=== PATIENT | male | born 1950 | race Caucasian/White ===

== ENCOUNTER 2025-03-23 07:31 | Outpatient (OUT) | payer OTHER, SELFPAY ==
[2025-03-23 08:32] LABS: Hematocrit 38.7 % (42.0-54.0); Hemoglobin 12.6 g/dL (14.0-18.0); Mean Corpuscular HGB Conc 32.6 g/dL (29.9-35.2); Mean Corpuscular Hemoglobin 27.9 pg (25.9-34.0); Mean Corpuscular Volume 85.8 fL (80.0-94.0); Platelet Count 218 10^3/uL (150-450); Red Blood Count 4.51 10^6/uL (4.70-6.10); White Blood Count 8.2 10^3/uL (4.0-11.0)
[2025-03-23 08:50] LABS: Alanine Aminotransferase 26 U/L (16-63); Albumin Globulin Ratio 0.5; Albumin Level 2.5 g/dL (3.4-5.0); Alkaline Phosphatase 655 U/L (46-116); Anion Gap 18.4; Aspartate Amino Transferase 235 U/L (15-37); Blood Urea Nitrogen 26.0 mg/dL (7.0-18.0); Calcium 9.5 mg/dL (8.5-10.1); Carbon Dioxide 23.2 mmol/L (21.0-32.0); Chloride 102 mmol/L (98-107); Cholesterol 169 mg/dL (<=200); Estimated GFR (African America >60 (>=60 mL/min/1.73m^2); Estimated GFR (Non-African Ame 51 (>=60 mL/min/1.73m^2); Free T3 2.86 pg/mL (2.18-3.98); Globulin 4.8 g/dL; Glucose 114 mg/dL (74-106); HDL Cholesterol 67 mg/dL (40-60); NT Pro B Type Natriuretic Pept 500.0 pg/mL (<=900.0); Potassium 4.6 mmol/L (3.5-5.1); Sodium 139 mmol/L (136-145); Thyroid Stimulating Hormone 3.016 uIU/mL (0.358-3.740); Total Protein 7.3 g/dL (6.4-8.2); Triglycerides 63 mg/dL (<=150); Uric Acid 7.5 mg/dL (3.5-7.2); VLDL CHOLESTEROL 12.6 mg/dL
[2025-03-23 09:01] LABS: Band Neutrophils Absolute 0.2 10^3/uL (0.0-0.3); Basophils Abs Manual 0.00 10^3/uL (0.00-0.10); Basophils Percent Manual 0.0 % (0.2-2.0); Eosinophils Absolute Manual 0.00 10^3/uL (0.00-0.70); Eosinophils Percent Manual 0.0 % (0.9-7.0); Lymphocytes Absolute Manual 1.64 10^3/uL (1.20-3.80); Lymphocytes Percent Manual 20.0 % (20.5-60.0); Monocytes Absolute Manual 0.49 10^3/uL (0.30-0.80); Monocytes Percent Manual 6.0 % (1.7-12.0); Segmented Neut Absolute Manual 5.90 10^3/uL (1.4-6.5); Segmented Neutrophils % Manual 72.0 (43.0-75.0)
[2025-03-24 04:07] LABS: CEA 1.2 ng/mL (0.0-4.7)
[2025-03-27 17:08] LABS: Antinuclear Antibodies, IFA Positive (.)
== END 2025-03-23 07:32 | disposition home or self-care (01) ==
PROVIDERS: Family Provider Family Medicine; PCP Family Medicine; Visit Provider Family Medicine
DX: R63.4 Abnormal weight loss (principal); I10 Essential (primary) hypertension; R06.00 Dyspnea, unspecified; Z12.5 Encounter for screening for malignant neoplasm of prostate
CPT/HCPCS: 36415; 80053; 80061; 82378; 83036; 83525; 83880; 84403; 84436; 84443; 84481; 84484; 84550; 85007; 85027; 85652; 86038; 86060; 86140; G0103

== ENCOUNTER 2025-03-27 12:25 | Outpatient (REF) | payer OTHER, SELFPAY | END 2025-03-27 12:26 | disposition home or self-care (01) | LOC: LAB 12:25 | PROVIDERS: Family Provider Family Medicine; PCP Family Medicine; Visit Provider Family Medicine | DX: R63.4 Abnormal weight loss (principal); I10 Essential (primary) hypertension; R06.00 Dyspnea, unspecified | CPT/HCPCS: G0328 ==

== ENCOUNTER 2025-03-29 08:39 | Outpatient (OUT) | payer OTHER, SELFPAY ==
--- OUTSIDE RECORDS SUMMARY | 2025-03-23 17:27 | XMS_ITS ---
Author Organization The [facility] in [place] Address [address] [place] [address] Care Team Providers Care Defense Analyst Name Role Phone Jayson Elizalde Primary Care Provider [phone] Encounters Encounter Location Date Provider Diagnosis [facility] [address] [place] [address] 03/23/2025 Jayson Elizalde Plan Of Treatment No Information Progress Notes * Dante MOLINADOB:1949 (74 yo M)Acc No.[id number]:03/23/2025 Patient: Dante NIETO :1950 A ge:74 Y S ex:Male Address:[address] [place] [address] [place], [place], [facility] * true * Date: Generated for Kingi edgar/Faducg/eTransmitting on: 0 03/29/2025 08:42 AM EDT
--- OUTSIDE RECORDS SUMMARY | 2025-03-27 05:30 | XMS_ITS ---
Author Organization The [facility] in [place] Address [address] [place] [address] Care Team Providers Care Wet Process Assistant Head Miller Name Role Phone Jayson Elizalde Primary Care Provider Allergies No Known Allergies Reason For Referral Reason elevatd psa Diagnosis 1 Elevated PSA (R97.20 ) Referral Organization [facility] Referring Provider First Name Jayson Referring Provider Last Name Tonio [facility] Referred Provider Colt Reich Referred Provider Specialty Urology Referral Priority Routine Diagnosis 1 Elevated PSA (R97.20 ) Referral Organization [facility] Referring Provider First Name Jayson Referring Provider Last Name Tonio [facility] Referred Organization [facility] Referred Provider Ashley Vidales Referred Address [address], [place],[address], Referred Provider Specialty Hematology/O ncology Referral Priority Routine Reason weakness due to like l prostate Diagnosis 1 Elevated PSA (R97.20 ) Referral Organization [facility] Referring Provider First Name Jayson Referring Provider Last Name Tonio Referring Provider Speciality Family Med icine Referred Provider [facility], Physical Therap y Referred Provider Specialty Physical The rapist Referral Priority Routine REASON FOR VISIT Presents to office with and son to review test results Medications Medication SIG (Take, Route, Fr equency, Duration) Notes Start Date End Date Status traMADol HCl 50 MG 1 tablet as needed O rally qid for 7 days 03/27/2025 Active Social History Tobacco Use: Social History Observation Description Date Details (start date - stop date) Never Smoker NA - NA Tobacco Control (Standard) Question Answer Notes Tobacco use: Nonsmoker AUDIT-C (Standard) Question Answer Notes Did you have a drink containing alcohol in the p ast year? No Points 0 Interpretation Negative Problems Problem Type SNOMED Code ICD Code Onset Dates Problem Status W/U Status Risk Notes Problem Elevated PSA (226018137) Elevated PSA (R97.20) Active confirmed Vital Signs Weight 136 lbs 03/27/2025 Height 67 in 03/27/2025 Blood pressure systolic 160 mm Hg 03/27/20 25 Blood pressure diastolic 80 mm Hg 025 BMI 21.3 kg/m2 03/27/2025 Encounters Encounter Location Date Provider Diagnosis [facility] [address] [place] [address] 03/27/2025 Jayson Elizalde Elevated PSA R97.20 Assessments Encounter Date Diagnosis (ICD Code) Assessment Notes Treatment Notes Treatment Clinical Notes Section Notes 03/27/2025 Elevated PSA (ICD-10 - R97.20) Plan Of Treatment Medication Medication Name Sig Start Date Stop Date Notes traMADol HCl 50 MG 1 tablet as needed O rally qid for 7 days 03/27/2025 Pending Test Test Name Order Date CT Brain w/contrast 03/27/2025 CT Brain w/o Contrast 03/27/2025 CT ABD and PELV W CON 03/27/2025 CT CHEST W CON 03/27/2025 NM bone scan whole body 03/27/2025 Referrals Referral Date Details 03/27/2025 03/27/2025, elevatd psa, Colt Reich 03/27/2025 03/27/2025, Ashley Vidales, [address], [place], [address], [email or web address], 03/27/2025 03/27/2025, weakness due to likel prostate, Physical Therapy [facility] Progress Notes * Dante MOLINADOB:1949 (74 yo M)Acc No.[id number]:03/27/2025 Progress Note Patient: Dante NIETO Provider: Clare Elizalde ([facility]), :1950 A ge:74 Y S ex:Male Date:03/27/2025 Address:[address] [place] [address] [place], [place] Check In:09:17 AM ESTCheck O ut:10:02 AM EST Subjective: * Chief Complaints: * P resents to office with and son to review test results * ROS: E ENT: hearing changes d enies. v isual changes d enies.?non-healing mouth sores d enies. s wollen glands or neck lumps d enies. h oarseness d enies. s ore throat d enies. d ifficulty swallowing d enies. n ose bleeds d enies. n yesi congestion d enies. e ar ache d enies. e ar discharge?denies. r inging in ears d enies. l ight sensitivity d enies. e ye pain d enies. b lurring d enies. e ye irritation d enies. d ouble vision d enies.?vision loss d enies. G eneral/Constitutional: Sweats: D enies. F atigue d enies. S leep problems d enies. A norexia d enies. M alaise d enies. W eight loss d enies.?Fatigue or Weakness d enies. F ever or Chills d enies. C ardiovascular: Shortness of Breath w/lying flat d enies. L ightheadedness/dizziness d enies. C hest tightness/ heavy pressure d enies. S welling of legs, ankles, or feet d enies. W aking up with shortness of breath d enies. C hest pain denies. P alpitations d enies. W eight gain d enies. R espiratory: Chronic or frequent cough d enies. C oughing up blood?denies. D ifficulty breathing d enies. P roductive cough d enies. S noring?denies. S hortness of breath that awakens from sleep (PND) d enies. C hest pain d enies. S putum production d enies. W heezing d enies. M usculoskeletal: Joint pain d enies. J oint Fluid d enies. B ack pain d enies. K nee pain d enies. N lurdes pain d enies. J oint Stiffness d enies. M uscle cramps d enies. W eakness of muscles d enies. A rthritis d enies. M uscle aches d enies. P ain in shoulder(s) d enies. S wollen joints d enies. * Active Problem List I10 Hypertension Modified On:03/22/2025 Status:confirmed R63.4 Weight loss Modified On:03/22/2025U Status:confirmed R06.00 Dyspnea Modified On:03/22/2025 Status:confirmed R97.20 Elevated PSA Modified On:03/27/2025 Status:confirmed * Medical History: * Surgical History: W isdom Teeth Extraction * Hospitalization/Major Diagno stic Procedure: * Family History: F ather: , prostate cancer, Cerebral vascular accident, diagnosed with Other malignant neoplasm of unspecified site, Unspecified heart disease. M other: . B rother(s): alive. S ister(s): alive. S on(s): alive. D aughter(s): alive. 1 brother(s) , 2 sister(s) . 2 son(s) , 1 daughter(s) - healthy. . * Social History: T obacco Use: T obacco Control (Standard) T obacco use: N onsmoker D rug/Alcohol: A MANUELITO-C (Standard) D id you have a drink containing alcohol in the past year? N o P oints 0 I nterpretation N egative * Medications: N one * Allergies: N .K.D.A.no[Allergies Verified] Objective: * Vitals: W t:136lbs, Ht: 67 in, BP:160/80mm Hg, BMI:21.3Index, Ht-cm: 170.18 cm, Wt-k.69 kg. * Examination: P hysical Exam: GENERAL: w ell developed, well nourished, in no acute distress. HEAD: n ormocephalic/atraumatic. EYES: p upils equal, round and reactive to light, conjunctivae and sclerae normal. EARS: n o deformity or lesion of external ear, canals and TM appear normal bilaterally, TM's intact, not inflamed with normal light reflex, hearing grossly normal to conversational speech. NOSE: n o deformity, discharge, inflammation, or lesions.? MOUTH: m ucous membranes moist, normal oropharynx and posterior pharynx without lesions or exudates, tongue normal, dentition normal. NECK: n lurdes supple, no masses or palpable cervical nodes, trachea midline, thyroid without nodules, masses, tenderness, or enlargement. CHEST: n o chest wall deformity, no chest wall tenderness.? LUNGS: n ormal respiratory effort and clear to auscultation, no wheezes, rales, or rhonchi, good air exchange. CARDIO: r egular rate and rhythm, normal S1 and S2, nor murmur, rub, or gallop. PULSES: n ormal capillary refill. ABDOMEN: s oft, non-distended, non-tender, no masses. MUSCULOSKELETAL: n o deformity or scoliosis noted, normal range of motion, joints normal, no erythema, edema, effusion, or ecchymosis. EXTREMITY: n o clubbing, cyanosis, edema, or deformity with normal ROM in both upper and lower bilateral extremities. NEUROLOGIC: g rossly normal. SKIN: n o rashes, ulcerations, or suspicious lesions. LYMPH NODES: n o cervical adenopathy, nodes normal. MENTAL STATUS: a lert and oriented x3, normal mood and affect. Assessment: * Assessment: 1. E levated PSA - R97.20 (Primary) Plan: * Treatment: * Procedure Codes: * Preventive Medicine: Screenings/Counseling: F ALL RISK SCREENING Fall Risk Assessment: N o falls in the past year * * Sign off status: Completed Visit Status: C HK (Check Out) true * Provider: Clare Elizalde (CLAUDIO)MD Date: 03/27/2025 Generated for Ana Luisa hernández/rEyn/eTranmatiasitting on: 03/29/2025 08:42 AM EDT History and Physical Notes * Examination Category Sub-Category Detail Notes Category Not es Physical Exam GENERAL: well developed, well nourished, in no acute distress HEAD: normocephalic/atraum atic EYES: pupils equal, round and reactive to light, conjunctivae and sclerae normal EARS: no deformity or lesi on of external ear, canals and TM appear normal bilaterally, TM's intact, not inflamed with normal light reflex, hearing grossly normal to conversational speech NOSE: no deformity, discha rge, inflammation, or lesions MOUTH: mucous membranes mar[address] st, normal oropharynx and posterior pharynx without lesions or exudates, tongue normal, dentition normal NECK: neck supple, no mass es or palpable cervical nodes, trachea midline, thyroid without nodules, masses, tenderness, or enlargement CHEST: no chest wall deform ity, no chest wall tenderness LUNGS: normal respiratory e ffort and clear to auscultation, no wheezes, rales, or rhonchi, good air exchange CARDIO: regular rate and rhy thm, normal S1 and S2, nor murmur, rub, or gallop PULSES: normal capillary ref ill ABDOMEN: soft, non-distended, non-tender, no masses RECTAL: MUSCULOSKELETAL: no deformity or scol iosis noted, normal range of motion, joints normal, no erythema, edema, effusion, or ecchymosis EXTREMITY: no clubbing, cyanosi s, edema, or deformity with normal ROM in both upper and lower bilateral extremities NEUROLOGIC: grossly normal SKIN: no rashes, ulceratio ns, or suspicious lesions LYMPH NODES: no cervical adenopat hy, nodes normal MENTAL STATUS: alert and oriented x 3, normal mood and affect Consultation Request Notes Referral Date Referring Provider Referred Provider Not es 03/27/2025 Jayson Elizalde Patrick elevatd psa 03/27/2025 Jayson Elizalde Ashley 03/27/2025 Jayson Elizalde [facility], Physical Therapy weakne ss due to likel prostate
--- OUTSIDE RECORDS SUMMARY | 2025-03-27 05:47 | XMS_ITS ---
Author Organization The [facility] in [place] Address [address] [place] [address] Care Team Providers Care Shellfish Sorter Name Role Phone Robertkristel Jayson Primary Care Provider Reason For Referral Diagnosis 1 Dyspnea (R06.00) Referral Organization [facility] Referring Provider First Name Jayson Referring Provider Last Name Tonio Referring Provider [facility] icine Referred Provider Specialty [facility] Referral Priority Routine REASON FOR VISIT eval HH Encounters Encounter Location Date Provider Diagnosis [facility] [address] [place] [address] 03/27/2025 Jayson Elizalde Dyspnea R06.00 Assessments Encounter Date Diagnosis (ICD Code) Assessment Notes Treatment Notes Treatment Clinical Notes Section Notes 03/27/2025 Dyspnea (ICD-10 - R06.00) Plan Of Treatment Referrals Referral Date Details 03/27/2025 03/27/2025 Progress Notes * JESSE DanteDOB:1949 (74 yo M)Acc No.[id number]:03/27/2025 Patient: Dante NIETO :1950 A ge:74 Y S ex:Male Address:[address] [place] [address] [place], [address] Subjective: * Chief Complaints: * e alvarez [facility] * Medical History: * Surgical History: * Hospitalization/Major Diagno stic Procedure: * Medications: Objective: * Vitals: * Physical Examination: Assessment: * Assessment: 1. D yspnea - R06.00 (Primary) Plan: * Treatment: * Procedure Codes: * true * Date: Generated for Ana Luisa hernández/Eryn/Patricksmitting on: 0 03/29/2025 08:42 AM EDT Consultation Request Notes Referral Date Referring Provider Referred Provider Not es 03/27/2025 Jayson Elizalde ,
--- NOTE | 2025-03-29 | NM_ITS ---
The [address] [address] Patient Name: VANDANA MOLINA MRN: [id number] date: 1950 Sex: M Assigned Patient Location: CT Current Patient Location: Accession/Order Number: [id number] Exam Date: 03/30/2025 08:19 Report Date: 03/30/2025 09:45 At the request of: BRIANDA SOUZA MD Procedure: NM bone scan whole body WHOLE-BODY BONE SCAN: CLINICAL HISTORY: Elevated PSA. Bone and muscle pain. COMPARISON: None Following the intravenous administration of 25.1 mCi of technetium 99m labeled MDP, delayed minified views of the entire skeleton were obtained. There is patchy areas of increased uptake involving the axial and appendicular skeleton. Uptake at the shoulders and right acromioclavicular joint might be degenerative. Scattered foci of increased uptake are seen within the spine. Some could be degenerative however metastatic disease is not excluded. There are also multiple subtle areas of increased uptake involving the rib cage on both sides, sternum, pelvis and sacrum where metastatic disease is possible. Indeterminate heterogeneous uptake is also present at the proximal humeri and femora on both sides. Patient is scheduled for CT chest, abdomen and pelvis today and correlation with those studies is recommended to evaluate for corresponding lesions. There is some activity at the bladder however the kidneys are not well seen. NM/NM bone scan whole body IMPRESSION: MULTIFOCAL AREAS OF INCREASED UPTAKE. SOME MIGHT BE DEGENERATIVE HOWEVER THERE IS CONCERN FOR METASTATIC DISEASE. CORRELATION WITH UPCOMING CT STUDIES IS RECOMMENDED. Impression dictated by: Mary Connell M.D. 03/30/2025 9:45 AM Dictation Location: [place] [address] Electronically authenticated by: [id number] Y Date: 03/30/2025 09:45
--- OUTSIDE RECORDS SUMMARY | 2025-03-29 08:42 | XMS_ITS | Clinical Summary ---
Author Organization [facility] Address [address] [place] [address] Phone Care Team Providers Care Skein Yard Drier Name Role Phone Jamin Elizalde MD Primary Care Provider [phone] Social History Tobacco Use Types Packs/Day Years Used Date Smoking Tobacco: Never Assessed Sex and Gender Information Value Date Recorded Sex Assigned at Not on file Legal Sex Male 3:12 PM EST Gender Identity Not on file Sexual Orientation Not on file Plan of Treatment Not on file Care Teams Skein Yard Drier Relationship Specialty Start Date End Date Jamin Elizalde MD [address] [facility] [place] [address] PCP - General 02/03/16
--- NOTE | 2025-03-29 08:45 | CT_ITS ---
The [address] [address] Patient Name: VANDANA MOLINA MRN: [id number] date: 1950 Sex: M Assigned Patient Location: CT Current Patient Location: CT Accession/Order Number: [id number] Exam Date: 03/29/2025 09:44 Report Date: 03/29/2025 09:51 At the request of: BRIANDA SOUZA MD Procedure: CT head/brain wo/w con CT BRAIN WITHOUT AND WITH INTRAVENOUS CONTRAST: CLINICAL HISTORY: Elevated PSA. Metastatic workup. COMPARISON: None TECHNIQUE: Contiguous axial images were obtained through the brain both before and after intravenous administration of 100 mL of Omnipaque 300. This CT exam was performed using one or more following dose reduction techniques: Automated exposure control, adjustment of the mA and/or kV according to patient size, or use of iterative reconstruction technique. FINDINGS: There is mild generalized atrophy. The ventricles are within normal limits for size and position. There is minor white matter hypodensity suggesting chronic microvascular disease. There are no additional areas of abnormal attenuation or enhancement. There is no hemorrhage, mass effect or extra-axial collections. The imaged paranasal sinuses and mastoid air cells are clear. No bone lesions are noted. There is minor carotid siphon plaque. CT/CT head/brain wo/w con IMPRESSION: ATROPHY AND CHRONIC MICROVASCULAR DISEASE. NO ACUTE INTRACRANIAL ABNORMALITY OR SUSPECTED METASTASIS. Impression dictated by: Mary Connell M.D. 03/29/2025 9:51 AM Dictation Location: [place] [address] Electronically authenticated by: [id number] Y Date: 03/29/2025 09:51
== END 2025-03-29 08:40 | disposition home or self-care (01) ==
LOC: CT 08:40
PROVIDERS: Family Provider Family Medicine; PCP Family Medicine; Visit Provider Family Medicine
DX: R94.02 Abnormal brain scan (principal); R97.20 Elevated prostate specific antigen [PSA]
CPT/HCPCS: 70470; 78306; A9503; Q9967

== ENCOUNTER 2025-03-30 11:50 | Outpatient (OUT) | payer OTHER, SELFPAY ==
--- NOTE | 2025-03-30 11:56 | CT_ITS ---
The [address] [address] Patient Name: VANDANA MOLINA MRN: [id number] date: 1950 Sex: M Assigned Patient Location: CT Current Patient Location: CT Accession/Order Number: [id number] Exam Date: 03/30/2025 16:31 Report Date: 03/30/2025 16:44 At the request of: BRIANDA SOUZA MD Procedure: CT abdomen pelvis w con CT Chest, Abdomen and Pelvis with contrast TECHNIQUE: Axial imaging with 2-D reconstruction. 100 cc of Visipaque 270The CT exam was performed using one or more the following dose reduction techniques: Automated exposure control, adjustment of the MA and/or Kv according to patient size, or use of the iterative reconstruction technique. History: Elevated PSA. Possible bony metastasis. Diffuse muscle bone pain. COMPARISON: Bone scan 03/29/2025 concern for skeletal metastasis THYROID: No significant thyroid abnormality identified. AIRWAY: Central airway is patent. ESOPHAGUS: Esophagus normal course and caliber. HEART: Heart is not enlarged. PERICARDIAL EFFUSION: None CORONARY ARTERY CALCIFICATION: Present MEDIASTINUM: Nonenlarged mediastinal lymph nodes identified. HILAR REGION: No hilar mass or adenopathy is seen. THORACIC AORTA: No thoracic aortic aneurysm or dissection. No atherosclerosis LUNG INTERSTITIUM: Mild atelectasis PLEURAL EFFUSION No pleural effusion identified. PNEUMOTHORAX: No pneumothorax seen. LUNG NODULE: No lung nodules identified. CHEST WALL: No chest wall abnormality seen. The bony chest intact. LIVER: No hepatic mass or intrahepatic biliary ductal dilatation is identified. Normal density of the liver parenchyma identified. GALLBLADDER: No gallbladder abnormalities identified. BILE DUCTS: No biliary duct dilatation identified. SPLEEN: Normal PANCREAS: Unremarkable ADRENAL GLANDS: The adrenal glands are unremarkable. KIDNEYS: Moderate right hydronephrosis and hydroureter. No obstructing stone. Hypodensity within the lumen. May represent bladder. ABDOMINAL AORTA: The abdominal aorta is normal. RETROPERITONEUM: The periaortic lymphadenopathy Presacral adenopathy likely metastatic. Largest measures 1.4 x 1.1 cm. STOMACH:Nondistended SMALL BOWEL: The small bowel loops are nondistended. APPENDIX: The appendix is normal. COLON: There is no colitis or diverticulitis. URINARY BLADDER: Mild wall thickening likely underdistention. May represent muscular hypertrophy. No focal lesion. REPRODUCTIVE STRUCTURES: Prostatomegaly prominent right seminal vesicle. FREE AIR: None FREE FLUID: None ABDOMINAL WALL: No subcutaneous soft tissue abnormality identified. INGUINAL HERNIA: None BONES:A diffuse sclerotic lesions throughout the spine and ribs and scapula. Diffuse sclerotic metastasis throughout the pelvis sacrum and proximal femur. CT/CT chest w con IMPRESSION: diffuse skeletal metastasis. Presacral and periaortic lymphadenopathy concerning for metastatic disease. Mild atelectasis. Moderate right hydronephrosis and hydroureter without obstructing stone. High density within the right intrarenal collecting system may represent blood. Prostatomegaly. Prominence of the left seminal vesicle. May suggest malignancy. Urinary bladder wall thickening. Underdistention versus hypertrophy. PRELIMINARY RESULTS: None given Impression dictated by: Jeromy Grier M.D. 03/30/2025 4:44 PM Dictation Location: [place] [address] Electronically authenticated by: [id number] Y Date: 03/30/2025 16:44
--- NOTE | 2025-03-30 11:56 | CT_ITS ---
The [address] [address] Patient Name: VANDANA MOLINA MRN: [id number] date: 1950 Sex: M Assigned Patient Location: CT Current Patient Location: CT Accession/Order Number: [id number] Exam Date: 03/30/2025 16:31 Report Date: 03/30/2025 16:44 At the request of: BRIANDA SOUZA MD Procedure: CT abdomen pelvis w con CT Chest, Abdomen and Pelvis with contrast TECHNIQUE: Axial imaging with 2-D reconstruction. 100 cc of Visipaque 270The CT exam was performed using one or more the following dose reduction techniques: Automated exposure control, adjustment of the MA and/or Kv according to patient size, or use of the iterative reconstruction technique. History: Elevated PSA. Possible bony metastasis. Diffuse muscle bone pain. COMPARISON: Bone scan 03/29/2025 concern for skeletal metastasis THYROID: No significant thyroid abnormality identified. AIRWAY: Central airway is patent. ESOPHAGUS: Esophagus normal course and caliber. HEART: Heart is not enlarged. PERICARDIAL EFFUSION: None CORONARY ARTERY CALCIFICATION: Present MEDIASTINUM: Nonenlarged mediastinal lymph nodes identified. HILAR REGION: No hilar mass or adenopathy is seen. THORACIC AORTA: No thoracic aortic aneurysm or dissection. No atherosclerosis LUNG INTERSTITIUM: Mild atelectasis PLEURAL EFFUSION No pleural effusion identified. PNEUMOTHORAX: No pneumothorax seen. LUNG NODULE: No lung nodules identified. CHEST WALL: No chest wall abnormality seen. The bony chest intact. LIVER: No hepatic mass or intrahepatic biliary ductal dilatation is identified. Normal density of the liver parenchyma identified. GALLBLADDER: No gallbladder abnormalities identified. BILE DUCTS: No biliary duct dilatation identified. SPLEEN: Normal PANCREAS: Unremarkable ADRENAL GLANDS: The adrenal glands are unremarkable. KIDNEYS: Moderate right hydronephrosis and hydroureter. No obstructing stone. Hypodensity within the lumen. May represent bladder. ABDOMINAL AORTA: The abdominal aorta is normal. RETROPERITONEUM: The periaortic lymphadenopathy Presacral adenopathy likely metastatic. Largest measures 1.4 x 1.1 cm. STOMACH:Nondistended SMALL BOWEL: The small bowel loops are nondistended. APPENDIX: The appendix is normal. COLON: There is no colitis or diverticulitis. URINARY BLADDER: Mild wall thickening likely underdistention. May represent muscular hypertrophy. No focal lesion. REPRODUCTIVE STRUCTURES: Prostatomegaly prominent right seminal vesicle. FREE AIR: None FREE FLUID: None ABDOMINAL WALL: No subcutaneous soft tissue abnormality identified. INGUINAL HERNIA: None BONES:A diffuse sclerotic lesions throughout the spine and ribs and scapula. Diffuse sclerotic metastasis throughout the pelvis sacrum and proximal femur. CT/CT abdomen pelvis w con IMPRESSION: diffuse skeletal metastasis. Presacral and periaortic lymphadenopathy concerning for metastatic disease. Mild atelectasis. Moderate right hydronephrosis and hydroureter without obstructing stone. High density within the right intrarenal collecting system may represent blood. Prostatomegaly. Prominence of the left seminal vesicle. May suggest malignancy. Urinary bladder wall thickening. Underdistention versus hypertrophy. PRELIMINARY RESULTS: None given Impression dictated by: Jeromy Grier M.D. 03/30/2025 4:44 PM Dictation Location: [place] [address] Electronically authenticated by: [id number] Y Date: 03/30/2025 16:44
== END 2025-03-30 11:51 | disposition home or self-care (01) ==
PROVIDERS: Family Provider Family Medicine; PCP Family Medicine; Visit Provider Family Medicine
DX: R97.20 Elevated prostate specific antigen [PSA] (principal); C79.9 Secondary malignant neoplasm of unspecified site; N13.30 Unspecified hydronephrosis; N20.1 Calculus of ureter
CPT/HCPCS: 71260; 74177; Q9966

== ENCOUNTER 2025-04-03 10:01 | Outpatient (RCR) | payer OTHER, SELFPAY | END 2025-04-04 07:50 | disposition home or self-care (01) | LOC: PT 10:01 | PROVIDERS: Family Provider Family Medicine; PCP Family Medicine; Visit Provider Family Medicine | DX: R97.20 Elevated prostate specific antigen [PSA] (principal) ==

== ENCOUNTER 2025-04-06 11:07 | Outpatient (OUT) | payer OTHER, SELFPAY | END 2025-04-06 11:08 | disposition home or self-care (01) | LOC: PST 11:07 | PROVIDERS: Family Provider Family Medicine; PCP Family Medicine; Visit Provider Urology | DX: Z01.818 Encounter for other preprocedural examination (principal); R97.20 Elevated prostate specific antigen [PSA] ==

== ENCOUNTER 2025-04-11 07:23 | Day surgery (SDC) | payer OTHER, SELFPAY ==
[2025-04-11 07:27] VITALS: BP 188/81; PULSE 86; TEMP 36.3; O2SAT 100
--- NOTE | 2025-04-11 07:27 | US_ITS ---
[address] [address] Patient Name: VANDANA MOLINA MRN: [id number] date: 1950 Sex: M Assigned Patient Location: [facility] Current Patient Location: Accession/Order Number: [id number] Exam Date: 04/11/2025 09:29 Report Date: 04/11/2025 09:30 At the request of: MEGAN STRICKLAND MD Procedure: US prostate Prostate biopsy. Reason for exam: Abnormal prostate. FINDINGS: Ultrasound guidance was performed during a prostate biopsy by the urology service. No radiologist was present at time of procedure. The prostate gland measures 5.0 x 3.3 x 4.6 cm for a prostate volume of 40 mL. Predicted PSA is 4.83. US/US prostate IMPRESSION: Ultrasound-guided prostate biopsy. Impression dictated by: Desmond Sanchez Jr., D.O. 04/11/2025 9:30 AM Dictation Location: [place] [address] Electronically authenticated by: [id number] Y Date: 04/11/2025 09:30
[2025-04-11] MEDS: GENTAMICIN SULFATE 80 MG/2 ML VIAL 120 MG IM (07:47)
[2025-04-11] MEDS: LIDOCAINE 2% JELLY 20 ML UR (08:00)
[2025-04-11 08:01] VITALS: BP 164/77; PULSE 81; O2SAT 99
[2025-04-11] MEDS: LIDOCAINE HCL 1% 100 MG/10 ML MDV INJ (08:10)
--- NOTE | 2025-04-11 08:34 | P.URON_ITS ---
Urology Surgery Operative Note Operative Note Procedure Date: 04/11/25 Time Out Performed: yes Pre-op Diagnosis: Elevated PSA Post-op Diagnosis: same as pre-op Procedures performed: 1. Transrectal ultrasound of the prostate. 2. Prostate needle biopsies. Anesthesia: local and other (Periprostatic block with 1% plain lidocaine) Primary Surgeon: Colt Reich Complications: None Estimated blood loss (mL): 5 Findings: Mixed echogenicity diffusely. Prostatic calcifications Specimens: Prostate needle biopsies. 8 from each side. Indications for Procedures: This gentleman has a elevated PSA of 798. He has an abnormal AICHA. He also has a family history of prostate cancer. He now presents for transrectal ultrasound and biopsies of the prostate to get a tissue diagnosis of prostate cancer. He has signed an informed consent after risks were explained. Some of these risks include bleeding, infection, urosepsis, anesthesia to name a few. Detailed description of Procedure: The patient was kept on his rpreston bed and brought into the endoscopy suite. He was rotated to the left lateral decubitus position. Timeout was done by all parties in the room. We all agreed upon the patient's identification and the planned procedures for this patient. We started by passing Betadine soaked sponges per rectum to swab the rectum. This was very painful for the patient. After this was done twice we then passed 2% lidocaine jelly per rectum. We then passed the ultrasound probe per rectum. This was initially painful but less. The prostate was scanned in the transverse and sagittal views. The volume was calculated to be 40 g. There was diffuse mixed echogenicity. There were also some prostatic calcifications. While in the sagittal view, I then did a 1% plain periprosthetic lidocaine block in the usual fashion. We then began taking needle biopsies from the left base going towards the apex. We divided it up into 4 levels and from each level took 2 biopsies. We did the same maneuver on the right side. Upon completion we had 16 satisfactory cores. The probe was removed. He was then discharged to home. He was reminded to con tinue his course of ciprofloxacin. Also, if you were to get a fever near 101 and/or shaking chills that do not stop he was instructed to go to the emergency room for IV antibiotics.
[2025-04-11 08:35] VITALS: BP 169/80; PULSE 79; O2SAT 99
== END 2025-04-11 08:38 | disposition home or self-care (01) ==
PROVIDERS: Family Provider Family Medicine; PCP Family Medicine; Visit Provider Urology
PROC: (CPT 55700; principal; 2025-04-11 08:00)
DX: C61 Malignant neoplasm of prostate (principal); R97.20 Elevated prostate specific antigen [PSA]; I10 Essential (primary) hypertension; Z80.42 Family history of malignant neoplasm of prostate
CPT/HCPCS: 55700; 76872; J1580